=== PATIENT | female | born 1985 | race Caucasian/White ===

== ENCOUNTER 2018-02-07 16:17 | Emergency (ER) | payer OTHER ==
[2018-02-07 16:26] VITALS: TEMP 98; O2SAT 100
[2018-02-07] MEDS ORDERED: Lactated Ringer's 1,000 ML IV STA (16:34)
[2018-02-07] MEDS ORDERED: Dextrose 5%/Lactated Ringer's 1,000 ML IV SCH (16:45)
--- NOTE | 2018-02-07 16:48 | ED PDOC ---
HPI: Female Pain Time Seen by Provider: 02/07/18 16:28 Chief Complaint (Nursing): Female Genitourinary Chief Complaint (Provider): vaginal bleeding History Per: Patient, Other (previous chart) Additional Complaint(s): 32yo @ 8 weeks presenting for vaginal bleeding since last night, associated cramping. Seen in [place] initially this morning and returned for increasing weakness. Found to have low bp and decreased in hgb on second visit. Sent for [facility] evaluation. Reports her symptoms persist but feels a little better. Has not started care yet. Past Medical History Reviewed: Historical Data, Nursing Documentation, Vital Signs Vital Signs: Last Vital Signs Temp 98 F 02/07/18 16:22 Pulse 96 H 02/07/18 16:22 Resp 16 02/07/18 16:22 BP 102/69 02/07/18 16:22 Pulse Ox 100 02/07/18 16:22 - Medical History PMH: No Chronic Diseases - Surgical History Surgical History: - Family History Family History: States: No Known Family Hx - Social History Current smoker - smoking cessation education provided: No - Immunization History Hx Tetanus Toxoid Vaccination: No Hx Influenza Vaccination: No - Home Medications Home Medications: Ambulatory Orders Medication Instructions Recorded Misoprostol 4 tab VAG Q12 #8 tablet 02/07/18 - Allergies Allergies/Adverse Reactions: Allergies Allergy/AdvReac Type Severity Reaction Status Date / Time No Known Allergies Allergy Verified 02/07/18 16:22 Review of Systems ROS Statement: Except As Marked, All Systems Reviewed And Found Negative (and as per HPI) Constitutional: Positive for: Weakness. Negative for: Fever Cardiovascular: Positive for: Light Headedness. Negative for: Chest Pain Gastrointestinal: Positive for: Abdominal Pain Genitourinary Female: Positive for: Vaginal Bleeding, Pelvic Pain Physical Exam - Reviewed Nursing Documentation Reviewed: Yes Vital Signs Reviewed: Yes - Physical Exam Appears: Positive for: Non-toxic, No Acute Distress (but tired-appearing) Skin: Positive for: Warm, Dry, Pallor ENT: Positive for: Pharynx Is (clear), Other (tacky mucus membranes) Gastrointestinal/Abdominal: Positive for: Soft, Tenderness. Negative for: Mass , Distended, Guarding, Rebound Neurologic/Psych: Positive for: Alert. Negative for: Motor/Sensory Deficits - ECG O2 Sat by Pulse Oximetry: 100 - Physician Consult Information Physician Contacted: Avtar Alexandra Outcome Of Conversation: 445p In ER evaluating patient 530p Pt stable for dc with rx for misoprostol intravaginally. Follow up clinic next week. Disposition - Clinical Impression Clinical Impression: Spontaneous miscarriage, Anemia due to blood loss, acute - Disposition [facility] (CALL CLINIC TOMORROW TO SETUP FOLLOW UP APPOINTMENT IN A WEEK) Disposition: Routine/Home Disposition Time: 17:30 Condition: STABLE Additional Instructions: FOLLOW DIRECTIONS FOR MISOPROSTOL PRESCRIBED DRINK PLENTY OF HYDRATING FLUIDS AND REST TAKE TYLENOL OR ADVIL FOR PAIN RETURN TO ER IMMEDIATELY (ONE WITH [facility] AVAILABLE, IF POSSIBLE) FOR BLEEDING MORE THAN ONE PAD AN HOUR, SEVERE PAIN, FAINTING, CHEST PAIN, SHORTNESS OF BREATH OR ANY OTHER WORRISOME SYMPTOMS. Prescriptions: Misoprostol 4 tab VAG Q12 #8 tablet Instructions: Miscarriage (DC), Normocytic Normochromic Anemia Forms: [employer] (Persian), [facility] ED School/Work Excuse
[2018-02-07 17:46] VITALS: BP 116/67; PULSE 81; RESP 14
--- NOTE | 2018-02-08 07:55 | CP.PCM.CON ---
History of Present Illness - History of Present Illness History of Present Illness: The patient presents to [facility] status post transfer due to miscarriage. Patient states she started having bleeding presented to the emergency room was evaluated in [place] Patient reports of vaginal bleeding denies faintness weakness dizziness Past Patient History - Infectious Disease Hx of Infectious Diseases: None - Past Social History Smoking Status: Never Smoked - PSYCHIATRIC Hx Substance Use: No - SURGICAL HISTORY Hx Surgeries: Yes Hx Section: Yes - ANESTHESIA Hx Anesthesia: Yes Hx Anesthesia Reactions: No Hx Malignant Hyperthermia: No Meds Home Medications: Home Medication List Medication Instructions Recorded Confirmed Type Misoprostol 4 tab VAG Q12 #8 tablet 02/07/18 Rx Allergies/Adverse Reactions: Allergies Allergy/AdvReac Type Severity Reaction Status Date / Time No Known Allergies Allergy Verified 02/07/18 16:22 Physical Exam - Exam Additional comments: Normal external female genitalia. Urethra normal cervix smooth scant blood noted uterus approximately 6 weeks size no adnexal masses vagina pink Results - Vital Signs Recent Vital Signs: Last Vital Signs Temp 98 F 02/07/18 16:22 Pulse 81 02/07/18 17:46 Resp 14 02/07/18 17:46 BP 116/67 02/07/18 17:46 Pulse Ox 100 02/07/18 23:06 Assessment & Plan - Assessment and Plan (Free Text) Assessment: Complete Misoprostol provided Patient advised to take Motrin Patient to follow up with PMD in 1 week - Date & Time Date: 02/07/18 Time: 09:00
== END 2018-02-07 18:01 | disposition home or self-care (01) ==
LOC: H.ER 16:17
DX: O03.9 Complete or unspecified spontaneous abortion without complication (principal); D62 Acute posthemorrhagic anemia